=== PATIENT | female | born 1950 | race Two or more races ===

== ENCOUNTER 2018-04-27 12:05 | Emergency (ER) | payer MEDICARE ==
[~2018-04-27] VITALS: Ht 144.8 cm; Wt 69.9 kg
[2018-04-27 12:09] VITALS: Ht 144.8 cm; Wt 69.9 kg
[2018-04-27 13:14] VITALS: BP 118/75
== END 2018-04-27 13:14 | disposition home or self-care (01) ==
LOC: ED 12:05
DX: S20.219A Contusion of unspecified front wall of thorax, initial encounter (principal); J45.909 Unspecified asthma, uncomplicated; I10 Essential (primary) hypertension; E11.9 Type 2 diabetes mellitus without complications; M81.0 Age-related osteoporosis without current pathological fracture; Z98.890 Other specified postprocedural states; Z88.5 Allergy status to narcotic agent; V49.88XA Car occupant (driver) (passenger) injured in other specified transport accidents, initial encounter; Y93.89 Activity, other specified; Y92.89 Other specified places as the place of occurrence of the external cause; Y99.8 Other external cause status